=== PATIENT | male | born 1945 ===

== ENCOUNTER → 2021-12-31 14:01 | Outpatient (BNVA) | payer MEDICARE, SELFPAY | PROVIDERS: PCP Internal Medicine; Visit Provider Nurse Practitioner Family | DX: G20 Parkinson's disease (principal); G25.81 Restless legs syndrome; F03.90 Unspecified dementia, unspecified severity, without behavioral disturbance, psychotic disturbance, mood disturbance, and anxiety; R44.3 Hallucinations, unspecified | CPT/HCPCS: 99212 ==

== ENCOUNTER → 2022-04-22 13:56 | Outpatient (BNVA) | payer MEDICARE, SELFPAY | PROVIDERS: PCP Internal Medicine; Visit Provider Nurse Practitioner Family | DX: G20 Parkinson's disease (principal); G25.81 Restless legs syndrome; F03.90 Unspecified dementia, unspecified severity, without behavioral disturbance, psychotic disturbance, mood disturbance, and anxiety; R44.3 Hallucinations, unspecified | CPT/HCPCS: 99212 ==

== ENCOUNTER 2023-05-25 10:31 | Outpatient (AMB) | payer MEDICARE, SELFPAY ==
--- NOTE | 2023-05-25 10:31 | MHC.OFFVIS ---
Intake Intake Visit Reasons: 4 mnts f/u for parkinson's-LVM Intake Note: Patient presents for 4 month. Patient states no issues or concerns. Allergies Penicillins Adverse Reaction (Mild, Verified 05/25/23 10:32) Rash HPI HPI Comments History of Present Illness Details Pt's son calls in for pt's f/u televisit, via phone. Pt's son provides history for pt. Pt is not available during this call. Pt's son reports pt was having increased falls. He eventually went to the ER and was transferred to a rehab center, where he has been for about 4 months now. Pt is currently residing at the [facility]. Pt's son endorses that pt's PD has been progressing. He is no longer able to walk w/o significant assist. He is having more delusions than hallucinations. [facility] Medical History (Updated 12/31/21 @ 17:20 by ELI Trinh) HTN (hypertension) Prostate CA Social History Alcohol intake: never Patient Tobacco Use Status: Never used Tobacco Assessment & Plan Assessment & Plan (1) Parkinson's disease: Code(s): G20 - Parkinson's disease (2) Dementia: Code(s): F03.90 - Unspecified dementia, unspecified severity, without behavioral disturbance, psychotic disturbance, mood disturbance, and anxiety (3) Hallucinations: Code(s): R44.3 - Hallucinations, unspecified Plan As pt is not available during today's televisit, will reschedule visit. Will request updated med list and progress nutes from [facility]. Telehealth Telehealth Location of provider rendering services: practice address Location of patient: address on file Patient Identification confirmed using: Name, : Yes Telehealth method: voice only Patient verbally consented to treatment: Yes Patient verbally consented to billing insurance company: Yes Patient informed of any privacy concerns related to visit: Yes Minutes spent on Phone/Video with Pt.: 15 Coding Level of Care Code Tele Est Pt Level 1 (15250) Diagnoses Parkinson's disease G20 Dementia F03.90 Hallucinations R44.3 Time Spent (min) 15
== END 2023-05-25 11:59 | disposition home or self-care (01) ==
LOC: HO.HSMS 10:31
PROVIDERS: PCP Internal Medicine; Visit Provider Nurse Practitioner Family
DX: G20 Parkinson's disease (principal); F03.90 Unspecified dementia, unspecified severity, without behavioral disturbance, psychotic disturbance, mood disturbance, and anxiety; R44.3 Hallucinations, unspecified
CPT/HCPCS: 99211

== ENCOUNTER → 2023-05-25 10:31 | Outpatient (BNVA) | payer MEDICARE, SELFPAY | PROVIDERS: PCP Internal Medicine; Visit Provider Nurse Practitioner Family ==